=== PATIENT | female | born 1995 | race Two or more races ===

== ENCOUNTER 2017-08-28 20:43 | Inpatient (IN) | payer BC ==
[~2017-08-28] VITALS: Ht 180.3 cm; Wt 66.7 kg
--- NOTE | 2017-08-28 21:00 | NUR ---
RN ADMITTING NOTES Pt ARRIVED ONTO THE FLOOR VIA GURNEY; DIRECT TRANSFER FROM [facility]. PT IS A/OX4, VERBAL, ABLE TO MAKE NEEDS KNOWN. Pt IS AMB WITH STEADY GAIT. IV ACCESS ON RAC #20G. Pt IS STILL C/O ABDL PAIN. WAITING ON ADMITTING ORDERS. SAFETY MEASURES IN PLACE. BED LOW, LOCKED, HOB ELEVATED, SIDE RAILS UP, CALL LIGHT AND BEDSIDE TABLE WITHIN REACH. WILL CONTINUE TO MONITOR Pt THROUGHOUT THE NIGHT FOR SAFETY.
--- NOTE | 2017-08-29 00:30 | NUR ---
MSRN PLACED CALL TO DR. HORN , INFORMED PATIENT HAS SEVERE ABDOMINAL PAIN. ORDER FOR MORPHINE 2MG IVP X 1 RECEIVED, CARRIED OUT. INFORMED PRIMARY NURSE.
[2017-08-29] MEDS ORDERED: MORPHINE SULFATE INJ 4 MG/ML DISP.SYRIN IV ONE (01:00)
[2017-08-29] MEDS ORDERED: IV NS 0.9% 1,000 ML IV PRN (01:04)
[2017-08-29] MEDS ORDERED: LEVOFLOXACIN 750 MG /D5W 150ML 150 ML IV ONE (01:29)
[2017-08-29] MEDS ORDERED: MAG HYDROX/AL HYDROX/SIMETH 30 ML UDC PO PRN (01:30)
[2017-08-29] MEDS ORDERED: MAGNESIUM HYDROXIDE 30 ML UDC PO PRN (01:30)
[2017-08-29] MEDS ORDERED: Z GUARD REMEDY 2 OZ OINT TP PRN (01:30)
[2017-08-29] MEDS ORDERED: HYDROCODONE/APAP 5/325MG 1 EACH TABLET PO PRN (01:30)
[2017-08-29] MEDS: LEVOFLOXACIN 750 MG /D5W 150ML 750 MG in PREMIX 1 EA IV SCH (01:57)
[2017-08-29] MEDS ORDERED: METRONIDAZOLE 500MG/ NS 100ML 500 MG in PREMIX 1 EA IV SCH (02:00)
[2017-08-29] MEDS ORDERED: METRONIDAZOLE 500MG/ NS 100ML 100 ML IV ONE (02:47)
[2017-08-29] MEDS: MORPHINE SULFATE INJ 4 MG/ML DISP.SYRIN IV PRN ×5 (03:21→23:26)
[2017-08-29] MEDS: ONDANSETRON HCL/PF 4 MG/2 ML VIAL IVP PRN ×2 (03:27→21:36)
--- NOTE | 2017-08-29 06:27 | NUR ---
RN CLOSING NOTES NO SIGNIFICANT CHANGES IN Pt's CONDITION. Pt REMAINS STABLE AT THIS TIME. ABDL PAIN HAS DECREASED TO 5/10. NO S/S OF ACUTE DISTRESS OR SOB NOTED DURING THE NIGHT. ALL NEEDS MET AND ATTENDED TO. SAFETY MEASURES IN PLACE. WILL ENDORSE TO DAYSHIFT RN FOR Pt's MICHAEL.
[2017-08-29 06:39] LABS: BASOPHILS % (AUTO) 0.2 % (0.0-2.0); HEMATOCRIT 33 % (33-45); HEMOGLOBIN 11.6 g/dL (11.5-14.8); LYMPHOCYTES # (AUTO) 1.5 /CMM (0.8-4.8); LYMPHOCYTES % (AUTO) 9.1 % (20.0-44.0); MEAN CORPUSCULAR HGB CONC 35 g/dl (31.0-36.0); MEAN CORPUSCULAR VOLUME 93 fL (82-100); MONOCYTES # (AUTO) 0.7 /CMM (0.1-1.30); MONOCYTES % (AUTO) 4.3 % (2.0-12.0); NEUTROPHILS # (AUTO) 14.2 /CMM (1.8-8.9); NEUTROPHILS % (AUTO) 86.4 % (43.0-81.0); PLATELET COUNT (AUTO) 164 /CMM (150-450); RDW COEFFICIENT OF VARIATION 12.8 (11.5-15.0); WHITE BLOOD COUNT (AUTO) 16.4 K/uL (4.3-11.0)
[2017-08-29 06:43] LABS: ALBUMIN 2.9 g/dL (3.4-5.0); BILIRUBIN,TOTAL 0.7 mg/dL (0.2-1.0); CALCIUM, SERUM 8.3 mg/dL (8.5-10.1); CREATININE 0.9 mg/dL (0.6-1.3); MAGNESIUM 1.9 mg/dL (1.8-2.4); PHOSPHORUS 3.6 mg/dL (2.5-4.9); POTASSIUM 3.4 mmol/L (3.5-5.1); TOTAL PROTEIN, SERUM 6.4 g/dL (6.4-8.2)
[2017-08-29 06:51] LABS: THYROID STIMULATING HORMONE 3.223 uIU/mL (0.358-3.74)
--- NOTE | 2017-08-29 07:47 | NUR ---
RN OPEN NOTES RECEIVED BEDSIDE REPORT FROM SENIOR DIRECTOR FINANCE NURSE. PATIENT IS IN BED, AWAKE ALERT AND ORIENTED TO NAME, PLACE AND TIME. ABLE TO VERBALIZE UNDERSTANDING. PAIN LEVEL 10/10, MORPHINE ADMINISTERED TO MANAGE PAIN. NO SIGNS AND SYMPTOMS OF DISTRESS. BED IN LOW POSITION, LOCKED AND TWO SIDE RAILS ARE UP FOR SAFETY. WILL CONTINUE TO MONITOR AND ASSESS PATIENT.
[2017-08-29 08:40] VITALS: BP 98/62
--- NOTE | 2017-08-29 10:00 | NUR ---
PATIENT FEELS THE URGE TO URINATE BUT UNABLE. BLADDER SCAN COMPLETED, URINE VOLUME 481. PATIENT REFUSED STRAIGHT CATH.
--- NOTE | 2017-08-29 11:15 | NUR ---
PATIENT WAS ABLE TO VOID. URINE COLLECTED AND SENT TO THE LAB
[2017-08-29] MEDS ORDERED: PHENAZOPYRIDINE HCL 200 MG TABLET PO PRN (11:30)
[2017-08-29] MEDS ORDERED: POTASSIUM CHLORIDE 20 MEQ TAB.PRT.SR PO SCH (12:30)
--- NOTE | 2017-08-29 13:06 | NUR ---
PATIENT IS NPO. UNABLE TO SWALLOW POTASSIUM PILL. DISCUSSED WITH MALINDA CASAS. PO MEDS CHANGED TO IV.
[2017-08-29] MEDS: METRONIDAZOLE 500MG/ NS 100ML 500 MG in PREMIX 1 EA IV SCH ×3 (13:27→23:11)
[2017-08-29] MEDS: POTASSIUM CL. PREMIX PERIPHER. 50 ML IV SCH ×2 (14:06→15:50)
--- NOTE | 2017-08-29 16:02 | NUR ---
DR AGUSTO DANIELS IS AT BEDSIDE
[2017-08-29 16:25] VITALS: BP 104/67
--- NOTE | 2017-08-29 17:43 | NUR ---
Patient lives locally in an apartment. She is ambulatory and independent with adl's. No dc planning needs identified at this time. Addendum: 08/29/17 at 1745 by GEETHA CORTES RN Amended: Links added.
--- NOTE | 2017-08-29 19:00 | NUR ---
MS RN NOTES RECEIVE PT IN BED A/O X 4, NO S/S OF DISTRESS, SAFETY MEASURES IN PLACE, CALL LIGHT WITHIN REACH, WILL CONTINUE TO MONITOR
--- NOTE | 2017-08-29 19:20 | NUR ---
RN CLOSING NOTES ENDORSED TO ELECTROTYPER HELPER RN. PATIENT IS IN BED, AWAKE, ALERT AND ORIENTED TO NAME, PLACE AND TIME. BED IN LOW POSITION, LOCKED AND TWO SIDE RAILS ARE UP FOR SAFETY. CALL LIGHT WITHIN REACH FOR SAFETY. NO SIGNS AND SYMPTOMS OF DISTRESS. PATIENT KEPT SAFE, CLEAN AND DRY. ALL NURSING CARE ANTICIPATED AND ATTENDED FOR.
[2017-08-29 20:00] VITALS: BP 112/63
[2017-08-29] MEDS: IV NS 0.9% 1,000 ML IV PRN (20:54)
[2017-08-29] MEDS: ACETAMINOPHEN 325 MG TABLET PO PRN (21:46)
--- NOTE | 2017-08-29 21:46 | NUR ---
MS RN NOTES PAGED WILLIE HORN GRAPHITE MILL OPERATOR SPOKE TO HIM RELAYED PT C/O HAVING HEADACHE AND HAVING SLIGHT TEMP PER JUSTINA OK TO GIVE ONCE TYLENOL 650 MG PO X 1 READ BACK AND VERIFIED ORDERS NOTED AND CARRIED OUT
--- NOTE | 2017-08-29 22:44 | NUR ---
MS RN NOTES PER PT SHE HAVE X 1 LOOSE STOOL UNABLE TO ASSESS STOOL PT FLUSHED ALREADY THE STOOL. REMINDED AND EDUCATED THE PT TO CALL AND NOTIFY ME ONCE SHE FEELS HAVING BOWEL MOVEMENT AGAIN VERBALIZED UNDERSTANDING
[2017-08-30] MEDS: LEVOFLOXACIN 750 MG /D5W 150ML 750 MG in PREMIX 1 EA IV SCH (01:55)
[2017-08-30] MEDS: ONDANSETRON HCL/PF 4 MG/2 ML VIAL IVP PRN ×2 (03:49→22:38)
[2017-08-30] MEDS: IV NS 0.9% 1,000 ML IV PRN (05:15)
[2017-08-30] MEDS: METRONIDAZOLE 500MG/ NS 100ML 500 MG in PREMIX 1 EA IV SCH ×4 (05:15→23:30)
[2017-08-30 06:00] VITALS: BP 105/59
--- NOTE | 2017-08-30 06:25 | NUR ---
MS RN NOTES PT IN BED ASLEEP AND EASILY AWAKEN, A/O X 4. NOT IN DISTRESS, TOLERATING ROOM AIR 98% STABLE CONDITION. KEPT CLEAN AND DRY AND COMFORT. NURSING CARE RENDERED. NEEDS ATTENDED AND ANTICIPATED. NO COMPLAIN OF PAIN AT THIS TIME. ON LOW BED TO ENSURE SAFETY, CALL LIGHT WITHIN REACH, WILL ENDORSE TO THE NEXT SHIFT CONTINUE PLAN OF CARE
[2017-08-30 07:01] LABS: BASOPHILS % (AUTO) 0.3 % (0.0-2.0); EOSINOPHILS % (AUTO) 0.5 % (0.0-6.0); HEMATOCRIT 34 % (33-45); HEMOGLOBIN 11.5 g/dL (11.5-14.8); LYMPHOCYTES # (AUTO) 1.3 /CMM (0.8-4.8); LYMPHOCYTES % (AUTO) 13.4 % (20.0-44.0); MEAN CORPUSCULAR HGB CONC 34 g/dl (31.0-36.0); MEAN CORPUSCULAR VOLUME 93 fL (82-100); MONOCYTES # (AUTO) 0.5 /CMM (0.1-1.30); MONOCYTES % (AUTO) 5.5 % (2.0-12.0); NEUTROPHILS # (AUTO) 7.8 /CMM (1.8-8.9); NEUTROPHILS % (AUTO) 80.3 % (43.0-81.0); PLATELET COUNT (AUTO) 181 /CMM (150-450); RDW COEFFICIENT OF VARIATION 12.8 (11.5-15.0); RED BLOOD CELL COUNT(AUTO) 3.63 MIL/uL (4.0-5.2); WHITE BLOOD COUNT (AUTO) 9.7 K/uL (4.3-11.0)
--- NOTE | 2017-08-30 07:20 | NUR ---
RN OPEN NOTES RECEIVED BEDSIDE REPORT FROM PROGRAM DIR NURSE. PATIENT IS IN BED, AWAKE ALERT AND ORIENTED TO NAME, PLACE AND TIME. ABLE TO VERBALIZE UNDERSTANDING. NO SIGNS AND SYMPTOMS OF DISTRESS. BED IN LOW POSITION, LOCKED AND TWO SIDE RAILS ARE UP FOR SAFETY. WILL CONTINUE TO MONITOR AND ASSESS PATIENT.
[2017-08-30 07:25] LABS: CALCIUM, SERUM 8.6 mg/dL (8.5-10.1); CREATININE 0.9 mg/dL (0.6-1.3); INR 1.03 (0.87-1.13); MAGNESIUM 1.9 mg/dL (1.8-2.4); PHOSPHORUS 2.9 mg/dL (2.5-4.9); POTASSIUM 3.9 mmol/L (3.5-5.1)
--- NOTE | 2017-08-30 07:40 | NUR ---
CACERES WAS REMOVED. 10CC DEFLATE THE BALLOON. PATIENT TOLERATED PROCEDURE WELL. WILL MONITOR PATIENT ABILITY TO VOID. Addendum: 08/30/17 at 0843 by JAJA GRIGSBY RN WRONG PATIENT DOCUMENTATION ---- VOIDED
[2017-08-30 08:20] VITALS: BP 102/57
[2017-08-30] MEDS: MORPHINE SULFATE INJ 4 MG/ML DISP.SYRIN IV PRN ×3 (09:16→18:41)
[2017-08-30] MEDS: IV D5/0.45 NACL 1,000 ML IV PRN ×2 (12:54→23:30)
--- NOTE | 2017-08-30 13:18 | NUR ---
PATIENT IS OFF THE FLOOR FOR CT
[2017-08-30 16:00] VITALS: BP 111/74
--- NOTE | 2017-08-30 16:23 | NUR ---
DR LIZ NOTIFIED ABOUT THE REPEAT CT SCAN. PER DR LIZ: ADVANCE DIET TOLERATED.
[2017-08-30] MEDS: ACETAMINOPHEN 325 MG TABLET PO PRN (16:39)
--- NOTE | 2017-08-30 18:19 | NUR ---
RN CLOSING NOTES PATIENT IS IN BED, AWAKE, ALERT AND ORIENTED TO NAME, PLACE AND TIME. BED IN LOW POSITION, LOCKED AND TWO SIDE RAILS ARE UP FOR SAFETY. CALL LIGHT WITHIN REACH FOR SAFETY. NO SIGNS AND SYMPTOMS OF DISTRESS. PATIENT KEPT SAFE, CLEAN AND DRY. ALL NURSING CARE ANTICIPATED AND ATTENDED FOR. WILL ENDORSE TO TESTER OPERATOR HELPER NURSE
--- NOTE | 2017-08-30 19:35 | NUR ---
MS RN NOTE RECEIVED PATIENT FROM DAY SHIFT, PATIENT IS ALERT AND ORIENTEDX4, DENIES RESPIRATORY DISTRESS OR PAIN AT THIS TIME. IV ON LEFT FA IS PATENT AND INTACT, FLUID IS RUNNING. SRX2, BED IN LOW POSITION, CALL LIGHT WITHIN REACH, WILL CONTINUE TO MONITOR PATIENT.
[2017-08-30 20:00] VITALS: BP 104/75
[2017-08-31] MEDS: LEVOFLOXACIN 750 MG /D5W 150ML 750 MG in PREMIX 1 EA IV SCH (01:58)
[2017-08-31] MEDS: ONDANSETRON HCL/PF 4 MG/2 ML VIAL IVP PRN (04:32)
[2017-08-31] MEDS: METRONIDAZOLE 500MG/ NS 100ML 500 MG in PREMIX 1 EA IV SCH (05:19)
--- NOTE | 2017-08-31 06:28 | NUR ---
MS RN NOTE PATIENT IS RESTING COMFORTABLY, NOT IN DISTRESS, TOLERATING ROOM AIR 98% STABLE CONDITION. KEPT CLEAN AND DRY AND COMFORT. NURSING CARE RENDERED. NEEDS ATTENDED AND ANTICIPATED. ON LOW BED TO ENSURE SAFETY, CALL LIGHT WITHIN REACH, WILL ENDORSE TO THE NEXT SHIFT CONTINUE PLAN OF CARE
--- NOTE | 2017-08-31 07:30 | NUR ---
RN OPEN NOTES RECEIVED BEDSIDE REPORT FROM CELLAR SUPERVISOR NURSE. PATIENT IS IN BED, AWAKE ALERT AND ORIENTED TO NAME, PLACE AND TIME. ABLE TO VERBALIZE UNDERSTANDING. NO SIGNS AND SYMPTOMS OF DISTRESS. BED IN LOW POSITION, LOCKED AND TWO SIDE RAILS ARE UP FOR SAFETY. WILL CONTINUE TO MONITOR AND ASSESS PATIENT.
[2017-08-31 08:00] VITALS: BP 113/58
--- NOTE | 2017-08-31 09:40 | NUR ---
PER RANI NUNN SCAN IN NEEDED. PLACED PATIENT ON NPO FOR SCAN
[2017-08-31] MEDS: METRONIDAZOLE 500 MG TABLET PO SCH ×2 (10:53→17:12)
--- NOTE | 2017-08-31 10:54 | NUR ---
NPO FOR HIDA SCAN. HELD 12PM MED
[2017-08-31 11:33] LABS: BASOPHILS % (AUTO) 0.3 % (0.0-2.0); EOSINOPHILS % (AUTO) 0.7 % (0.0-6.0); HEMATOCRIT 35 % (33-45); HEMOGLOBIN 12.2 g/dL (11.5-14.8); LYMPHOCYTES # (AUTO) 0.8 /CMM (0.8-4.8); LYMPHOCYTES % (AUTO) 12.6 % (20.0-44.0); MEAN CORPUSCULAR HGB CONC 35 g/dl (31.0-36.0); MEAN CORPUSCULAR VOLUME 92 fL (82-100); MONOCYTES # (AUTO) 0.5 /CMM (0.1-1.30); MONOCYTES % (AUTO) 7.9 % (2.0-12.0); NEUTROPHILS # (AUTO) 5.1 /CMM (1.8-8.9); NEUTROPHILS % (AUTO) 78.5 % (43.0-81.0); PLATELET COUNT (AUTO) 220 /CMM (150-450); RDW COEFFICIENT OF VARIATION 12.4 (11.5-15.0); RED BLOOD CELL COUNT(AUTO) 3.82 MIL/uL (4.0-5.2); WHITE BLOOD COUNT (AUTO) 6.4 K/uL (4.3-11.0)
[2017-08-31 11:34] LABS: CALCIUM, SERUM 8.9 mg/dL (8.5-10.1); CREATININE 0.9 mg/dL (0.6-1.3); POTASSIUM 3.9 mmol/L (3.5-5.1)
[2017-08-31 11:40] LABS: ALBUMIN 3.2 g/dL (3.4-5.0); BILIRUBIN,TOTAL 0.3 mg/dL (0.2-1.0); MAGNESIUM 1.8 mg/dL (1.8-2.4)
--- NOTE | 2017-08-31 13:12 | NUR ---
PATIENT IS OFF THE FLOOR FOR HIDA SCAN
--- NOTE | 2017-08-31 13:53 | NUR ---
NM:HIDA SCAN WAS COMPLETED, TECH:RB
--- NOTE | 2017-08-31 14:25 | NUR ---
PATIENT IS BACK TO THE FLOOR FROM HIDA SCAN
[2017-08-31 16:00] VITALS: BP 108/62
--- NOTE | 2017-08-31 18:00 | NUR ---
PATIENT WERE ABLE TO TOLERATE SOFT DIET WITHOUT SIGNS AND SYMPTOMS OF N/V. PATIENT IS CLEARED TO BE DISCHARGE. DR LIZ AND DR GARDUNO CLEARED THE PATIENT TO GO HOME.
[2017-08-31 20:00] VITALS: BP 97/55
--- NOTE | 2017-08-31 20:07 | NUR ---
RN CLOSING / DISCHARGE NOTES DISCHARGE ORDER RECEIVED AND CARRIED OUT. NO SIGNS AND SYMPTOMS OF DISTRESS. PATIENT IS LEAVING IN A STABLE CONDITION. DISCHARGE INSTRUCTIONS EXPLAINED TO PATIENT, PATIENT VERBALIZED UNDERSTANDING. ALL PERSONAL BELONGING WITH PATIENT AT TIME OF DISCHARGE. PATIENT SIGNED BOTH DISCHARGE INSTRUCTION FORM AND BELONGING LIST FORMS; BOTH PLACED IN THE CHART. PRESCRIPTION OF ZOFRAN GAVE TO PATIENT. IV SITE REMOVED. ID BAND REMOVED. PATIENT WILL BE PICKED UP BY HER ROOMATE BETWEEN 9 AND 10PM VIA A PRIVATE CAR. NIGHT RN IS AWARE OF DISCHARGE AND COMPLIANCE MGR TIME.
--- NOTE | 2017-08-31 20:10 | NUR ---
RN NOTES RECEIVED PATIENT LYING COMFORTABLY IN BED, IN NO ACUTE DISTRESS AND IS IN STABLE CONDITION. AWAITING FOR ROOM MATE TO PICK HER UP. ALL PATIENT'S NEEDS ATTENDED TO AT THIS TIME. CALL LIGHT PLACED WITHIN EASY REACH. PLACED BED IN LOW POSITION AND LOCKED IN PLACE. WILL CONTINUE TO MONITOR.
--- NOTE | 2017-08-31 20:50 | NUR ---
EYE CARE PROFESSIONAL NOTE PATIENT SITTING UP IN BED COMFORTABLY, FRIEND, TARAN IN THE ROOM TO PICK PATIENT UP. PATIENT IS AMBULATORY AND CAN WALK INDEPENDENTLY BUT EXITED UNIT VIA WHEELCHAIR PATIENT DID NOT HAVE ANY SHOES AND REQUESTED IF SHE CAN USE THE WHEELCHAIR, AGREED TO PT REQUEST. PT DENIES PAIN, IN NO ACUTE DISTRESS AND DENIES PAIN AND IN STABLE CONDITION.
[2017-08-31] MEDS ORDERED: LEVOFLOXACIN (750 MG) 750 MG TABLET PO SCH (23:00)
== END 2017-08-31 20:10 | disposition home or self-care (01) | DRG 392 ==
LOC: MED 20:43
PROVIDERS: ADMIT Family Medicine; ATTEND Family Medicine
DX: A09 Infectious gastroenteritis and colitis, unspecified (principal); E44.0 Moderate protein-calorie malnutrition; E88.09 Other disorders of plasma-protein metabolism, not elsewhere classified; E83.51 Hypocalcemia; E86.0 Dehydration; E87.6 Hypokalemia; D72.829 Elevated white blood cell count, unspecified; Z68.20 Body mass index [BMI] 20.0-20.9, adult
CPT/HCPCS: 36415; 76705-TC; 78226; 80048-TC; 80053-TC; 83605-TC; 83735-TC; 84100-TC; 84443-TC; 84703-TC; 85025-TC; 85610-TC; 86850-TC; 87040-TC; 87081-TC; 87086-TC; A4216; A9537; J1956; J2270; J2405; J3480; J3490; J7030; Z7610